=== PATIENT | male | born 1995 | race Two or more races ===

== ENCOUNTER 2021-08-17 08:33 | Emergency (ER) | payer MEDICAID ==
[~2021-08-17] VITALS: Ht 180.3 cm; Wt 72.7 kg
[2021-08-17 08:50] VITALS: BP 142/80
[2021-08-17] MEDS ORDERED: CefTRIAXone 1000mg IM Kit (w/lidocaine diluent) IM ONE (09:10)
[2021-08-17] MEDS ORDERED: CEFTRIAXONE 500 MG VIAL IM ONE (09:10)
[2021-08-17] MEDS ORDERED: azithromycin 250mg tablet PO ONE (09:10)
[2021-08-17 09:56] LABS: CLARITY,URINE CLEAR (Clear); COLOR,URINE YELLOW (Yellow); GLUCOSE, URINE NEGATIVE (Neg); KETONES,URINE NEGATIVE (Neg); LEUKOCYTE ESTERASE ,URINE NEGATIVE (Neg); NITRITES, URINE NEGATIVE (Neg); OCCULT BLOOD,URINE NEGATIVE (Neg); PH,URINE 7.5 (4.8-8.0); PROTEIN,URINE NEGATIVE (Neg); UROBILINOGEN,URINE 0.2 E.U/dL (0.2-1.0)
[2021-08-17 10:04] LABS: UA COLLECTION TYPE VOIDED
== END 2021-08-17 10:04 | disposition home or self-care (01) ==
LOC: ER 08:34
DX: Z20.2 Contact with and (suspected) exposure to infections with a predominantly sexual mode of transmission (principal); R50.9 Fever, unspecified; R51.9 Headache, unspecified
CPT/HCPCS: 36415; 81003; 87252; 96372; 99283; J0696

== ENCOUNTER 2022-03-09 09:21 | Emergency (ER) | payer MEDICAID ==
[~2022-03-09] VITALS: Ht 177.8 cm; Wt 78.1 kg
[2022-03-09 09:45] VITALS: BP 116/78
[2022-03-09] MEDS ORDERED: PRED20TA PO (10:05)
[2022-03-09] MEDS ORDERED: BECL7.3A INH (10:05)
== END 2022-03-09 10:15 | disposition home or self-care (01) ==
LOC: ER 09:22
DX: J45.901 Unspecified asthma with (acute) exacerbation (principal); Z79.899 Other long term (current) drug therapy
CPT/HCPCS: 71046; 99283